=== PATIENT | male | born 1970 | race African-American/Black ===

== ENCOUNTER 2016-07-20 11:39 | Emergency (ER) | payer MEDICAID ==
[~2016-07-20] VITALS: Ht 175.3 cm; Wt 102.0 kg
[2016-07-20 12:35] LABS: BASOPHILS % 1.3 % (0.0-2.0); DIFFERENTIAL COMMENT 0; EOSINOPHILS % 0.1 % (0.0-5.0); HEMATOCRIT. 38.1 % (42.0-52.0); HEMOGLOBIN. 12.6 g/dL (14.0-18.0); LYMPHOCYTES % 38.7 % (20.0-50.0); MEAN CORPUSCULAR HEMOGLOBIN 25.6 pg (28.0-32.0); MEAN CORPUSCULAR HGB CONC 33.1 g/dL (31.0-37.0); MEAN CORPUSCULAR VOLUME 77.5 fL (80.0-94.0); MEAN PLATELET VOLUME 7.5 fl (7.4-10.4); MONOCYTES % 6.7 % (2.0-8.0); NEUTROPHILS % 53.2 % (40.0-76.0); PLATELET 320 x1000/uL (130-400); RED BLOOD CELL COUNT 4.92 mill/uL (4.7-6.1); RED CELL DISTRIBUTION WIDTH 15.7 % (11.6-14.6)
[2016-07-20 12:38] LABS: CLARITY URINE CLEAR (CLEAR); COLOR URINE YELLOW (YELLOW); GLUCOSE URINE NEGATIVE (NEGATIVE); KETONES URINE NEGATIVE (NEGATIVE); LEUKOCYTE ESTERASE URINE NEGATIVE (NEGATIVE); NITRITE URINE NEGATIVE (NEGATIVE); OCCULT BLOOD URINE NEGATIVE (NEGATIVE); PROTEIN URINE NEGATIVE (NEGATIVE); SPECIFIC GRAVITY URINE 1.013 (1.005-1.030); UROBILINOGEN URINE 0.2 E.U./dL (0.2-1.0)
[2016-07-20 12:51] LABS: ALANINE AMINOTRANSFERASE 41 IU/L (13-61); ALBUMIN 3.9 g/dL (3.4-5.0); ANION GAP 15; CALCIUM 9.4 mg/dL (8.5-10.1); CARBON DIOXIDE 26 mEq/L (21-32); CHLORIDE 108 mEq/L (98-107); INDEX HEMOLYSI 1 (1-3); INDEX ICTERIC 1 (1-4); INDEX LIPEMIC 1 (1-3); UREA NITROGEN BLOOD 13 mg/dL (7-21); eGFR > 60 mL/min (>60)
[2016-07-20 12:55] LABS: ETHANOL BLOOD 362 mg/dL
[2016-07-20 13:01] LABS: *AMPHETAMINES SCREEN URINE NEGATIVE (NEGATIVE); *BARBITURATES SCREEN URINE NEGATIVE (NEGATIVE); *BENZODIAZEPINES SCREEN URINE NEGATIVE (NEGATIVE); *COCAINE SCREEN URINE PRESUMTIVE POSITIVE (NEGATIVE); CANNABINOID URINE SCREEN PRESUMTIVE POSITIVE (NEGATIVE); ECSTASY MDMA SCREEN URINE NEGATIVE (NEGATIVE); METHADONE URINE SCREEN NEGATIVE (NEGATIVE); OPIATES URINE SCREEN NEGATIVE (NEGATIVE); PHENCYCLIDINE URINE SCREEN NEGATIVE (NEGATIVE)
[2016-07-21 08:04] VITALS: BP 140/87
== END 2016-07-21 09:07 | disposition left against medical advice (07) ==
LOC: ER 12:18
DX: F20.9 Schizophrenia, unspecified (principal); R45.851 Suicidal ideations; F17.210 Nicotine dependence, cigarettes, uncomplicated; F43.10 Post-traumatic stress disorder, unspecified; Z88.8 Allergy status to other drugs, medicaments and biological substances
CPT/HCPCS: 36415; 80053; 80305; 81003; 85025; 99284; G0482; Z7610